=== PATIENT | male | born 1995 | race Two or more races ===

== ENCOUNTER 2019-05-15 22:38 | Emergency (ER) | payer SELFPAY ==
[~2019-05-15] VITALS: Ht 180.3 cm; Wt 85.8 kg
[2019-05-15 22:51] VITALS: BP 123/72
== END 2019-05-15 23:24 | disposition left against medical advice (07) ==
LOC: EDBD 22:38 → ER 22:38
DX: R42 Dizziness and giddiness (principal); F41.9 Anxiety disorder, unspecified; Z53.21 Procedure and treatment not carried out due to patient leaving prior to being seen by health care provider
CPT/HCPCS: 93005

== ENCOUNTER 2020-01-23 00:32 | Emergency (ER) | payer SELFPAY | END 2020-01-23 01:16 | disposition left against medical advice (07) | LOC: EDBD 00:32 → ER 00:32 | DX: T50.901A Poisoning by unspecified drugs, medicaments and biological substances, accidental (unintentional), initial encounter (principal); X58.XXXA Exposure to other specified factors, initial encounter ==